=== PATIENT | male | born 1975 | race Caucasian/White ===

== ENCOUNTER → 2022-11-14 15:05 | Outpatient (BNVA) | payer OTHER, SELFPAY | PROVIDERS: PCP Family Medicine; Visit Provider Family Medicine | DX: E78.5 Hyperlipidemia, unspecified (principal); F10.10 Alcohol abuse, uncomplicated; I10 Essential (primary) hypertension; Z72.0 Tobacco use; J44.9 Chronic obstructive pulmonary disease, unspecified | CPT/HCPCS: 80053; 80061; 83036; 84153; 84443; 85025; 86803; 87806 ==

== ENCOUNTER → 2022-11-15 22:55 | Outpatient (BNVA) | payer OTHER, SELFPAY | PROVIDERS: PCP Family Medicine; Visit Provider Family Medicine | DX: E78.5 Hyperlipidemia, unspecified (principal); F10.10 Alcohol abuse, uncomplicated; I10 Essential (primary) hypertension; Z72.0 Tobacco use; J44.9 Chronic obstructive pulmonary disease, unspecified | CPT/HCPCS: 87522 ==

== ENCOUNTER 2023-09-25 12:21 | Outpatient (CLI) | payer OTHER, SELFPAY ==
--- NOTE | 2023-09-25 | ECG_ITS ---
[facility] Test Date: 2023-09-25 Pat Name: Edide Buchanan Department: Room: Gender: Male Loading Manager: Clair Conley : 1975 Requested By: Adrian Underwood Order Number: [id number] Carine MD: Adam Churchill M.D. Interpretive Statements NAME OF STUDY: TREADMILL STRESS TEST INDICATION: [Fatigue, ] EXERCISE DATA: The patient was exercised by Toby protocol. Baseline heart rate was 67 beats per minute. Baseline blood pressure was 140/92 millimeters of mercury. Target heart rate was 145 beats per minute. Maximum heart rate achieved was 150 which was 103% of the target heart rate. Maximum blood pressure was 218/102 millimeters of mercury. Total exercise time was 7 minutes 2 seconds. Maximum METs achieved was 10.2. The reason for ending the test was completion of protocol. The patient complained of shortness of breath. During the stress test, which then resolved at the end of the test. ELECTROCARDIOGRAM: BASELINE: Showed sinus rhythm, normal axis, no significant ST-T changes at the baseline noted. [] EXERCISE: At the peak exercise level, [] No significant ST-T changes suggestive of ischemia noted. [] RECOVERY: During the recovery period, heart rate dropped appropriately. No significant ST-T changes in the recovery suggestive of ischemia noted. [] CONCLUSION: 1. Exercise capacity is good. 2. Heart rate response was appropriate. 3. Blood pressure response was hypertensive. 4. Symptoms not suggestive of ischemia. 5. Stress test does not suggest ischemia. Electronically Signed On 10-01-2023 12:45:20 [employer] by Adam Churchill M.D. [email or web address] beaumont [email or web address] [id number]
[2023-09-25 13:03] VITALS: BMI 19.5
[2023-09-25 13:41] VITALS: BP 159/94; PULSE 77
== END 2023-09-25 12:22 | disposition home or self-care (01) ==
LOC: CDL 12:22
PROVIDERS: PCP Family Medicine; Visit Provider Internal Medicine Cardiovascular Disease
DX: R53.83 Other fatigue (principal); I10 Essential (primary) hypertension
CPT/HCPCS: 93017; 96374

== ENCOUNTER → 2025-05-06 13:37 | Outpatient (BNVA) | payer OTHER, SELFPAY | PROVIDERS: PCP Family Medicine | DX: M25.532 Pain in left wrist (principal) | CPT/HCPCS: 73110 ==